=== PATIENT | female | born 1985 | race Caucasian/White ===

== ENCOUNTER 2017-03-18 06:00 | Inpatient (IN) ==
[2017-03-18] MEDS ORDERED: Famotidine 20 MG/2 ML VIAL IVP PRN (06:12)
[2017-03-18] MEDS ORDERED: miSOPROStol 25 MCG TABLET PO PRN (06:12)
[2017-03-18] MEDS ORDERED: *HR* Nalbuphine 20 MG/ML AMPUL IVP PRN (06:12)
[2017-03-18] MEDS ORDERED: Naloxone 0.4 MG/ML INJ IVP PRN (06:12)
[2017-03-18] MEDS ORDERED: Ondansetron 4 MG/2 ML VIAL IVP PRN (06:12)
[2017-03-18] MEDS ORDERED: D5% in 0.45% NACL 1,000 ML IVC SCH (06:30)
--- NOTE | 2017-03-18 06:37 | OB/GYN History & Physical ---
Date of Encounter: 03/18/17 Time of Encounter: 06:45 Assessment and Plan (1) Encounter for elective induction of labor Current visit: Yes Status: Acute Plan: - admit to L&D - NST reactive - obtain CBC and drug screen - expectant management. Begin induction with * - anticipate (2) 39 weeks gestation of Current visit: Yes Status: Acute Routine care with Dr. Emery, close observation for SGA, 39% growth at 28 weeks (3) NST (non-stress test) reactive Current visit: Yes Status: Acute (4) Hx of mixed drug abuse Current visit: Yes Status: Acute hx of heroin (2012) and marijuana use (5) Hepatitis C Current visit: Yes Status: Chronic Patient followed outside [facility] office Qualifiers: Viral hepatitis chronicity: chronic Hepatic coma status: without hepatic coma Qualified Code(s): B18.2 - Chronic viral hepatitis C (6) Depression with anxiety Current visit: Yes Status: Chronic Patient followed by psychiatry and is currently on Effexor, stable History of Present Illness Chief complaint: induction of labor HPI: Ms. Lemus is a 31 year old female at 39+3 weeks presented to labor and delivery for induction of labor. Patient's is complicated by hepatitis C. Reports active movement. Patient denies vaginal bleeding, contractions, leakage of fluids. Denies N/V, changes in vision, ABBOTT. Patient follows up with Dr. Emery. PNL: Blood type O+. GBS neg, RI, HBsAG neg, HIV neg. RPR neg. Hep C pos Past Med Surg Social Fam HX - Past Medical History Attestation: Yes The following information was validated with the patient. Source: patient, old records reviewed Medical history: asthma, hepatitis (hep C) Psychiatric history: anxiety, depression, other - Past Surgical History Surgical History: other (Facial reconstruction) - Social History Smoking Status: Former smoker Smokeless Tobacco Status: No Alcohol use: none Drug use: none - Family History Father Hx Family Cardiac Disorders: Yes (HTN) Obstetrical History - Pregnancies : 1 Para: 0 Term: 0 : 0 Ab's: 0 Livin - History/Complications History/Complications: none Medications and Allergies Effexor 37.5 mg PO DAILY 12/10/14 [History] Folic Acid [Folic Acid] 03/18/17 [History] Vit #108/Iron/FA [ One Tablet] 03/18/17 [History] 3 Allergy/AdvReac Type Severity Reaction Status Date / Time Amoxicillin Allergy Hives Verified 03/18/17 06:58 Penicillins Allergy Hives Verified 03/18/17 06:58 vancomycin Allergy Hives Verified 03/18/17 06:58 Review of System OB All systems PM: reviewed and no additional remarkable complaints except as stated - Constitutional Constitutional ROS IM: weight gain Exam - Vital Signs Vital signs: Afebrile, vital signs stable. heart tones 130s baseline, CAT 1 - Constitutional Constitutional: well developed, well nourished - HEENT HEENT: EOMI - Neck Neck exam: full ROM - Lungs Respiratory exam: CTAB - Cardiovascular Cardiovascular exam: RRR - Breasts Breast: bilateral: normal (Gravid) - Abdomen Abdomen: Present: bowel sounds normal, gravid, non tender - Extremities Extremities exam: normal inspection, warm - Vulva Vulva: bilateral: normal - Vagina Vagina: Present: normal moisture - Cervix Dilation: 5 Effacement: 80 Station: -1 - Anus/Rectum Anus/Rectum: Present: normal perianal skin Results Result Diagrams: 03/18/17 06:30 All other labs normal. - VTE Reasons for not Prescribing Prophylaxis: Treatment not Indicated - Low risk for VTE - Attending Attestation I examined this patient and my medical decision-making was reviewed with the Resident Physician. I agree with the documented findings, disposition and treatment plan as described except to the extent set forth below.
[2017-03-18 06:50] LABS: Amphetamine Screen,Urine Negative ng/mL (Cutoff=1000); Barbiturate Screen,Urine Negative ng/mL (Cutoff=200); Benzodiazepines Screen,Urine Negative ng/mL (Cutoff=200); Cannabinoid Screen,Urine Negative ng/mL (Cutoff = 50); Cocaine Screen,Urine Negative ng/mL (Cutoff= 300); Opiate Screen,Urine Negative ng/mL (Cutoff=300); Phencyclidine Screen,Urine Negative ng/mL (Cutoff=25)
[2017-03-18 07:06] LABS: Basophils % 0.4 %; Eosinophils % 0.2 %; Hematocrit 36.7 % (35.3-44.9); Hemoglobin 12.9 g/dL (11.5-15.4); Immature Granulocytes % 0.5 % (0-4); Lymphocytes # 2.5 K/mcL (0.6-4.6); Lymphocytes % 22.6 %; Mean Corpuscular HGB Conc 35.1 g/dL (31.6-35.5); Mean Corpuscular Hemoglobin 30.7 pg (28.0-33.3); Mean Corpuscular Volume 87.4 fL (83.0-100.0); Mean Platelet Volume 9.3 fL (9.4-12.4); Monocytes # 0.6 K/mcL (0.0-1.3); Monocytes % 5.3 %; Neutrophils # 7.8 K/mcL (1.6-8.9); Platelet Count 317 K/mcL (140-400); Red Cell Distribution Width 12.6 % (11.5-14.5)
[2017-03-18] MEDS ORDERED: Venlafaxine XR (24 HR) 37.5 MG CAP.ER.24H PO SCH (09:00)
[2017-03-18] MEDS: Ringers Solution, Lactated 1,000 ML IVC SCH ×2 (11:06→12:28)
[2017-03-18] MEDS ORDERED: *HR* FentaNYL (PF) 100 MCG/2 ML VIAL EP ONE (11:28)
[2017-03-18] MEDS ORDERED: Bupivacaine-MPF 0.25% 10 ML VIAL EP ONE (11:28)
[2017-03-18] MEDS ORDERED: Epidural Premix (fent/bupiv) 110 ML EP SCH (11:30)
[2017-03-18] MEDS ORDERED: Bupivacaine-MPF 0.25% 10 ML VIAL ONE (11:30)
[2017-03-18] MEDS ORDERED: *HR* FentaNYL (PF) 100 MCG/2 ML VIAL ONE (11:31)
[2017-03-18] MEDS ORDERED: Epidural Premix (fent/bupiv) 110 ML EP ONE (11:31)
--- NOTE | 2017-03-18 12:04 | Anesthesia Evaluation PreOp ---
Date of Encounter: 03/18/17 Time of Encounter: 11:20 - Past History Planned Operation: labor epidural Cardiac History: Denies any Significant Hx Pulmonary History: Smoker (1ppd for 15 years. only smokes rarely during .), Asthma (well controlled. No recent attacks. 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 Soft tissue facial surgery. No problems with GA, no FHAP.) : Yes Alcohol Use: none Drug use: none Medications and Allergies Effexor 37.5 mg PO DAILY 12/10/14 [History] Folic Acid [Folic Acid] 03/18/17 [History] Vit #108/Iron/FA [ One Tablet] 03/18/17 [History] 3 Allergy/AdvReac Type Severity Reaction Status Date / Time Amoxicillin Allergy Hives Verified 03/18/17 06:58 Penicillins Allergy Hives Verified 03/18/17 06:58 vancomycin Allergy Hives Verified 03/18/17 06:58 - Meds/Allergy Pre-op Review Medications Reviewed: Yes Allergies Reviewed: Yes Beta Blockers on Current Med List: No Anesthesia Results - Labs 03/18/17 06:30 Anesthesia Exam 130/83, 75, 20. FHTs 120s. Height: 5'7" Weight: 69kg NPO (# of Hours): 6 Pain Scale: 10 Pain Scale Used: Numeric (1 - 10) - HEENT Pupil (Motor): Pupils equal, EOMI Mallampati: II Teeth: Normal Oral Opening: Greater than 3 - EXT JS DEVELOPER LOC: Oriented EXT JS DEVELOPER Motor: Normal RUE, Normal LUE, Normal RLE, Normal LLE, Normal Face EXT JS DEVELOPER Sensory: Normal: RUE, LUE, RLE, LLE, Face - Cardiac Rhythm: Regular - Pulmonary Breath Sounds: bilateral Clear Respiratory Effort: Symmetrical Anesthesia Assess/Plan ASA Score: 3 Modified Equality Scale for Level of Consciousness: Cooperative, oriented, and tranquil Anesthetic Plan: Regional Monitoring Plan: Standard Monitors
--- NOTE | 2017-03-18 12:10 | Anesthesia Procedures ---
Date of Encounter: 03/18/17 Time of Encounter: 11:34 Procedures: Anesthesia - Epidural/Spinal Patient ID/Chart reviewed: Yes Patient examined: Yes OB Eval: Gestational age: 39 OB Eval: : 1 OB Eval: Hx Para: 0 OB Eval: Dilated at (cm): 4 OB Eval: Contractions: Non-stressed pattern Supplemental Oxygen: None/Room Air Site Prep: Aseptic Technique, Sterile prep and drape, Povidone-Iodine 1% Patient position: upright Local Anesthetic: Lidocaine 1% Amount of Local Anesthetic used: 3 Touhy Needle Gauge: 18 Catheter Depth at Skin (cm): 5 Test Dose (1.5% Lido + Epi): Volume given (mls): 16 Test Dose Result: Negative Loading Dose: 0.25% Marcaine (mls): 8 Loading Dose: Fentanyl (mcg): 100 Loading Dose Administered: Thru Catheter Infusion Med: 0.125% Bupivacaine w/ 2 mcg/ml Fentanyl Infusion Rate (mls/hr): [address]: Tegaderm, Tape Interspace Used: L3-L4 Loss of Resistance (ORQUIDEA): Yes Blood: No CSF: No Paresthesia: No Vitals + FHT's: 3 Vital Signs Time 1134 1147 1150 1155 1200 BP 129/92 125/82 118/70 112/68 102/57 Pulse 76 80 84 109 77 FHTs 120 120 120 120 120
[2017-03-18] MEDS ORDERED: Oxytocin 20 units/ LR 1000 mL 20 UNIT/1,000 ML BAG IVC ONE ×2 (15:38→21:28)
--- NOTE | 2017-03-18 16:38 | OB/GYN Procedure Note ---
Delivery - Delivery Date: 03/18/17 Provider: Libby Angel Intrapartum events: none Delivery induction: misoprostol Delivery monitor: external FHT, external uterine Anesthesia: epidural Estimated Blood Loss: 100 - Infant (s) A Infant Delivery Date: 03/18/17 Infant Delivery Time: 16:19 Presentation: vertex Position: ADILENE Route of delivery: Gender: Female Viability: Viable Pounds: 7 Ounces: 10 Weight Gram: 3470 kg at 1 minute: 8 at 5 mins: 9 Shoulder Dystocia: not encountered Specimens collected: cord blood Placenta: spontaneous, uterine exploration (No retained products of conception) Cord: 3 umbilical vessels - Repair Episiotomy: none Laceration Description: Vaginal, Labial (right) - Complications Delivery complications: none Delivery comments: of vigorous viable female in the ADILENE position. No nuchal. No meconium. Shoulders delivered easily. No shoulder dystosia. placed on mom 's belly. Apgars 8/9 at 1 and 5 minutes. Cord double clamped and cut after pulsations ceased. Placenta delivered spontaneously appears grossly intact. 3 vessel cord present. Upon peritoneal inspection, right labial, hemostatsis stable and left to heal by second intention and vaginal laceration closed with 3 -0 monocryl and hemostatic after closure. Fundus firm and at u/2. EBL 100ml. Infant delivery attended by Dr. Angel and Dr. Jennifer Hu. Infant and mother stable in recovery. Pericare instructions given to patient. - Disposition Mom disposition: stable in LDR [place] disposition: stable in LDR - Comments Comments: I examined this patient and my medical decision-making was reviewed with the Resident Physician. I agree with the documented findings, disposition and treatment plan as described except to the extent set forth below. Cord blood was obtained. Uterus was explored and there were no retained products of conception.
[2017-03-18] MEDS ORDERED: Measles/Mumps/Rubella Vacc 0.5 ML VIAL SQ PRN (21:28)
[2017-03-18] MEDS ORDERED: Oxytocin 20 units/ LR 1000 mL 20 UNIT/1,000 ML BAG IVC SCH (21:28)
[2017-03-18] MEDS ORDERED: Benzocaine/Menthol 56 GM AEROSOL SPRAY TP PRN (21:28)
[2017-03-18] MEDS ORDERED: Sennosides 8.6 MG TABLET PO PRN (21:28)
[2017-03-18] MEDS ORDERED: Ibuprofen 600 MG TABLET PO PRN (21:28)
[2017-03-18] MEDS ORDERED: Acetaminophen 325 MG TABLET PO PRN (21:28)
[2017-03-19 03:39] LABS: Basophils % 0.2 %; Eosinophils % 0.1 %; Hematocrit 34.5 % (35.3-44.9); Hemoglobin 11.8 g/dL (11.5-15.4); Immature Granulocytes % 0.4 % (0-4); Lymphocytes # 2.4 K/mcL (0.6-4.6); Lymphocytes % 15.3 %; Mean Corpuscular HGB Conc 34.2 g/dL (31.6-35.5); Mean Corpuscular Hemoglobin 30.6 pg (28.0-33.3); Mean Corpuscular Volume 89.4 fL (83.0-100.0); Mean Platelet Volume 9.4 fL (9.4-12.4); Monocytes # 0.7 K/mcL (0.0-1.3); Monocytes % 4.5 %; Neutrophils # 12.7 K/mcL (1.6-8.9); Platelet Count 297 K/mcL (140-400); Red Blood Count 3.86 M/mcL (3.82-4.97); Red Cell Distribution Width 12.4 % (11.5-14.5); Segmented Neutrophils % 79.5 %
[2017-03-19] MEDS ORDERED: Prenatal Vit/FA 1 EACH TABLET PO SCH (09:00)
[2017-03-19] MEDS ORDERED: Venlafaxine XR (24 HR) 37.5 MG CAP.ER.24H PO SCH (09:00)
--- NOTE | 2017-03-19 09:06 | Discharge Summary ---
Date of Encounter: 03/19/17 Time of Encounter: 09:03 - Discharge Diagnosis (1) Encounter for elective induction of labor Priority: Secondary Status: Acute (2) 39 weeks gestation of Priority: Primary Status: Acute (3) NST (non-stress test) reactive Priority: Secondary Status: Acute (4) Hx of mixed drug abuse Priority: Secondary Status: Acute (5) Hepatitis C Priority: Secondary Status: Chronic Qualifiers: Viral hepatitis chronicity: chronic Hepatic coma status: without hepatic coma Qualified Code(s): B18.2 - Chronic viral hepatitis C (6) Depression with anxiety Priority: Secondary Status: Chronic - Discharge Medications Prescriptions: Acetaminophen [Tylenol] 650 mg PO Q6HR PRN #40 tablet PRN Reason: Mild Pain Ibuprofen [Motrin] 600 mg PO Q6HR PRN #40 tablet PRN Reason: Cramping Docusate [Colace] 100 mg PO BID #10 capsule Home Medications: Effexor 37.5 mg PO DAILY 12/10/14 [History] Folic Acid 03/18/17 [History] Vit #108/Iron/FA [ One Tablet] 03/18/17 [History] Acetaminophen [Tylenol] 650 mg PO Q6HR PRN #40 tablet 03/19/17 [Rx] Benzocaine/Menthol [place] [Dermoplast [place]] 1 appl TP QID PRN aerosol 03/19/17 [Rx] Docusate [Colace] 100 mg PO BID #10 capsule 03/19/17 [Rx] Ibuprofen [Motrin] 600 mg PO Q6HR PRN #40 tablet 03/19/17 [Rx] Allergies/Adverse Reactions: 3 Allergy/AdvReac Type Severity Reaction Status Date / Time Amoxicillin Allergy Hives Verified 03/18/17 06:58 Penicillins Allergy Hives Verified 03/18/17 06:58 vancomycin Allergy Hives Verified 03/18/17 06:58 Data Procedures and tests throughout hospitalization: Laboratory Tests 03/18/17 03/18/17 03/19/17 06:30 06:30 03:14 WBC 10.9 15.9 H RBC 4.20 3.86 Hgb 12.9 11.8 Hct 36.7 34.5 L MCV 87.4 89.4 MCH 30.7 30.6 MCHC 35.1 34.2 RDW 12.6 12.4 Plt Count 317 297 MPV 9.3 L 9.4 Immature Gran % 0.5 0.4 Seg Neutrophils % 71.0 79.5 Lymphocytes % 22.6 15.3 Monocytes % 5.3 4.5 Eosinophils % 0.2 0.1 Basophils % 0.4 0.2 Neutrophils # 7.8 12.7 H Lymphocytes # 2.5 2.4 Monocytes # 0.6 0.7 Eosinophils # 0.0 0.0 Basophils # 0.0 0.0 Urine Opiates Screen Negative Ur Barbiturates Screen Negative Ur Phencyclidine Scrn Negative Ur Amphetamines Screen Negative U Benzodiazepines Scrn Negative Urine Cocaine Screen Negative U Marijuana (THC) Screen Negative Labs on day of discharge: Labs from last 24 hours 03/19/17 03:14 WBC 15.9 H RBC 3.86 Hgb 11.8 Hct 34.5 L MCV 89.4 MCH 30.6 MCHC 34.2 RDW 12.4 Plt Count 297 MPV 9.4 Immature Gran % 0.4 Seg Neutrophils % 79.5 Lymphocytes % 15.3 Monocytes % 4.5 Eosinophils % 0.1 Basophils % 0.2 Neutrophils # 12.7 H Lymphocytes # 2.4 Monocytes # 0.7 Eosinophils # 0.0 Basophils # 0.0 Date of admission: 03/18/17 06:01 Primary care physician: George Díaz DO Consults: 03/18/17 21:28 Consult to Envelope Sealer Operator [CONS] Routine Comment: Vaginal delivery, consult needed Discharging clinician: Leatha Lewis Anticipated date of discharge: 03/19/17 - Patient Status Disposition: Home, Self-Care Condition: Good Functional capacity at discharge: independent ambulation Overall status at discharge: patient is progressing back to baseline - Discharge Instructions Follow Up With: George Díaz DO [Primary Care Provider] - - Diet and Activity Activity: increase activity as tolerated Diet: advance to your usual diet Hospital Course Reason for admission: active labor Delivery: Episiotomy: none Laceration: vaginal side wall Other procedures: none complications: none Discharge diagnosis: IUP at term delivered [place] baby: female Hospital course: - Delivery Date: 03/18/17 Provider: Libby Angel Intrapartum events: none Delivery induction: misoprostol Delivery monitor: external FHT, external uterine Anesthesia: epidural Estimated Blood Loss: 100 - (s) A Delivery Date: 03/18/17 Delivery Time: 16:19 Presentation: vertex Position: ADILENE Route of delivery: Gender: Female Viability: Viable Pounds: 7 Ounces: 10 Weight Gram: 3470 kg at 1 minute: 8 at 5 mins: 9 Shoulder Dystocia: not encountered Specimens collected: cord blood Placenta: spontaneous, uterine exploration (No retained products of conception) Cord: 3 umbilical vessels - Repair Episiotomy: none Laceration Description: Vaginal, Labial (right) - Complications Delivery complications: none Delivery comments: of vigorous viable female infant in the ADILENE position. No nuchal. No meconium. Shoulders delivered easily. No shoulder dystosia. placed on mom 's belly. Apgars 8/9 at 1 and 5 minutes. Cord double clamped and cut after pulsations ceased. Placenta delivered spontaneously appears grossly intact. 3 vessel cord present. Upon peritoneal inspection, right labial, hemostatsis stable and left to heal by second intention and vaginal laceration closed with 3 -0 monocryl and hemostatic after closure. Fundus firm and at u/2. EBL 100ml. delivery attended by Dr. Angel and Dr. Jennifer Hu. Infant and mother stable in recovery. Pericare instructions given to patient. - Disposition Mom disposition: stable in Patient had no complications after delivery. Patient has been able to void well and ambulating after epidural. Appetite is good. Patient is breast- feeding and nursing was able to assist before discharge. Patient has stable and ready for discharge. We will follow up with edema CRAFT ARTIST in 4 weeks. Time Attestation: Total time spent providing and/or coordinating discharge services: Exam - Constitutional Vitals: Temp Pulse Resp BP Pulse Ox 98.1 F 84 12 100/62 98 03/19/17 05:04 03/19/17 05:04 03/19/17 05:04 03/19/17 05:04 03/19/17 05:04 General appearance IM: pleasant, no acute distress - Respiratory Respiratory exam: Present: CTAB - Cardiovascular Cardiovascular exam IM: Present: RRR - GI/Abdominal GI/Abdominal exam IM: normal bowel sounds - Uterine Tone: Firm Uterus Position: 2 Fingers Below Umbilicus - Extremities Exam Extremities exam IM: Present: normal inspection - Neurological Exam Neurological exam: alert, no focal deficits - Psychiatric Additional comments: Reports good mood.
[2017-03-19 09:09] VITALS: BP 111/73
[2017-03-21 12:00] LABS: HCV Quant Interpretation NOT DETECTED (Not Detected)
== END 2017-03-19 11:18 | disposition home or self-care (01) | DRG 560 ==
LOC: 1NENULAB 06:01 → 1NENUOBS 18:44
PROVIDERS: ADMIT Obstetrics & Gynecology; ATTEND Obstetrics & Gynecology

== ENCOUNTER 2020-06-20 11:31 | Inpatient (IN) ==
[2020-06-20] MEDS ORDERED: Famotidine 20 MG/2 ML VIAL IVP PRN (11:46)
[2020-06-20] MEDS ORDERED: miSOPROStoL 25 MCG TABLET PO PRN (11:46)
[2020-06-20] MEDS ORDERED: Lidocaine 1% 20 ML MDV INFILT PRN (11:46)
[2020-06-20] MEDS ORDERED: *HR* Nalbuphine 10 MG/ML AMPUL IV PRN (11:46)
[2020-06-20] MEDS ORDERED: Azithromycin 500 MG in 0.9 % Sodium Chloride 250 ML IVPB ONE (11:46)
[2020-06-20] MEDS ORDERED: Metoclopramide 10 MG/2 ML VIAL IVP PRN (11:46)
[2020-06-20] MEDS ORDERED: Ondansetron 4 MG/2 ML VIAL IVP PRN ×2 (11:46→17:58)
[2020-06-20] MEDS ORDERED: Naloxone 0.4 MG/ML INJ IVP PRN ×2 (11:46→17:58)
[2020-06-20] MEDS ORDERED: Penicillin G Potassium 5,000,000 UNIT in 0.9 % Sodium Chloride Mini Bag 100 ML IVPB ONE (11:57)
[2020-06-20] MEDS ORDERED: Ringers Solution, Lactated 1,000 ML IVC SCH (12:00)
[2020-06-20 12:58] LABS: Basophils % 0.4 %; Eosinophils # 0.1 K/mcL (0.0-0.6); Eosinophils % 1.2 %; Hematocrit 35.5 % (35.3-44.9); Hemoglobin 11.5 g/dL (11.5-15.4); Immature Granulocytes % 0.6 % (0-4); Lymphocytes # 1.5 K/mcL (0.6-4.6); Lymphocytes % 18.5 %; Mean Corpuscular HGB Conc 32.4 g/dL (31.6-35.5); Mean Corpuscular Hemoglobin 28.2 pg (28.0-33.3); Mean Platelet Volume 9.6 fL (9.4-12.4); Monocytes # 0.4 K/mcL (0.0-1.3); Monocytes % 5.3 %; Platelet Count 342 K/mcL (140-400); Red Blood Count 4.08 M/mcL (3.82-4.97); White Blood Count 8.1 K/mcL (4.3-11.1)
[2020-06-20 13:09] LABS: Amphetamine Screen,Urine Negative ng/mL (Cutoff=1000); Barbiturate Screen,Urine Negative ng/mL (Cutoff=200); Benzodiazepines Screen,Urine Negative ng/mL (Cutoff=200); Cannabinoid Screen,Urine Negative ng/mL (Cutoff = 50); Cocaine Screen,Urine Negative ng/mL (Cutoff= 300); Opiate Screen,Urine Negative ng/mL (Cutoff=300); Phencyclidine Screen,Urine Negative ng/mL (Cutoff=25)
[2020-06-20 13:24] LABS: Adenovirus Not Detected (Not Detect); Bordetella Pertussis Not Detected (Not Detect); Chlamydophila pneumoniae Not Detected (Not Detect); Coronavirus 229E Not Detected (Not Detect); Coronavirus HKU1 Not Detected (Not Detect); Coronavirus NL63 Not Detected (Not Detect); Coronavirus OC43 Not Detected (Not Detect); Human Metapneumovirus Not Detected (Not Detect); Human Rhinovirus/Enterovirus DETECTED (Not Detect); Influenza A Subtype 2009 H1 Not Detected (Not Detect); Influenza B Not Detected (Not Detect); Mycoplasma pneumoniae Not Detected (Not Detect); Parainfluenza Virus 1 Not Detected (Not Detect); Parainfluenza Virus 2 Not Detected (Not Detect); Parainfluenza Virus 3 Not Detected (Not Detect); Parainfluenza Virus 4 Not Detected (Not Detect); Respiratory Syncytial Virus Not Detected (Not Detect); SARS-CoV-2 Not Detected (Not Detect)
[2020-06-20] MEDS ORDERED: Penicillin G Potassium 2,500,000 UNIT/105 ML MLS IVPB SCH (16:00)
[2020-06-20 16:24] LABS: Albumin 3.7 g/dL (3.5-5.7); Albumin/Globulin Ratio 1.5 (1.1-2.2); Bilirubin,Direct 0.1 mg/dL (0.0-0.2); Bilirubin,Indirect 0.6 mg/dL (0.0-1.0); Bilirubin,Total 0.7 mg/dL (0.3-1.0); Globulin 2.5 g/dL (2.4-3.5); Total Protein 6.2 g/dL (6.4-8.9)
[2020-06-20] MEDS ORDERED: Oxytocin 20 units/ LR 1000 mL 20 UNIT/1,000 ML BAG IVC SCH ×2 (17:15→22:50)
[2020-06-20] MEDS ORDERED: EPHEDrine 50 MG/ML VIAL IVP PRN (17:58)
[2020-06-20] MEDS ORDERED: Ropivacaine/PF 0.2% 20 ML VIAL EP ONE (17:58)
[2020-06-20] MEDS ORDERED: Epidural Premix (fent/bupiv) 110 ML EP SCH (18:00)
[2020-06-20] MEDS ORDERED: Ropivacaine/PF 0.2% 20 ML VIAL ONE (18:06)
[2020-06-20] MEDS ORDERED: Benzonatate 100 MG CAPSULE PO PRN (20:25)
[2020-06-20] MEDS ORDERED: Oxytocin 20 units/ LR 1000 mL 20 UNIT/1,000 ML BAG IVC ONE (22:50)
[2020-06-20] MEDS ORDERED: Rho Immune Globulin 1,500 UNIT SYRINGE IM PRN (22:50)
[2020-06-20] MEDS ORDERED: Measles/Mumps/Rubella Vacc 0.5 ML VIAL SQ PRN (22:50)
[2020-06-20] MEDS ORDERED: Acetaminophen 325 MG TABLET PO PRN (22:50)
[2020-06-20] MEDS ORDERED: Ibuprofen 600 MG TABLET PO PRN (22:50)
[2020-06-21 04:55] LABS: Basophils # 0.1 K/mcL (0.0-0.2); Basophils % 0.3 %; Eosinophils # 0.1 K/mcL (0.0-0.6); Eosinophils % 0.8 %; Hematocrit 31.3 % (35.3-44.9); Hemoglobin 10.4 g/dL (11.5-15.4); Immature Granulocytes % 0.5 % (0-4); Lymphocytes # 1.9 K/mcL (0.6-4.6); Lymphocytes % 12.3 %; Mean Corpuscular HGB Conc 33.2 g/dL (31.6-35.5); Mean Corpuscular Hemoglobin 28.3 pg (28.0-33.3); Mean Corpuscular Volume 85.1 fL (83.0-100.0); Mean Platelet Volume 9.3 fL (9.4-12.4); Monocytes % 4.8 %; Neutrophils # 12.6 K/mcL (1.6-8.9); Platelet Count 289 K/mcL (140-400); Red Blood Count 3.68 M/mcL (3.82-4.97); Red Cell Distribution Width 12.9 % (11.5-14.5); Segmented Neutrophils % 81.3 %
[2020-06-21 04:56] LABS: Monocytes # 0.7 K/mcL (0.0-1.3); White Blood Count 15.5 K/mcL (4.3-11.1)
[2020-06-21] MEDS ORDERED: Prenatal Vit/FA 1 EACH TABLET PO SCH (09:00)
[2020-06-21] MEDS ORDERED: Venlafaxine XR (24 HR) 37.5 MG CAP.ER.24H PO SCH (09:00)
[2020-06-21] MEDS ORDERED: Bupivacaine-MPF 0.25% 10 ML VIAL ONE (13:59)
[2020-06-21] MEDS ORDERED: ROPIVACAINE/PF/NS 0.25% 1 EACH SYRINGE INTRAART ONE (15:08)
[2020-06-21] MEDS ORDERED: Sugammadex Sodium 200 MG/2 ML VIAL IV ONE (15:44)
[2020-06-21] MEDS ORDERED: Lidocaine HCL 4 ML Topical Solution (Laryng-O-Jet Kit Sterile Pak) TP ONE (15:44)
[2020-06-21] MEDS ORDERED: *HR* Midazolam HCl 2 MG/2 ML VIAL ONE (15:44)
[2020-06-21] MEDS ORDERED: *HR* Propofol 200 MG/20 ML VIAL IVP ONE (15:44)
[2020-06-21] MEDS ORDERED: *HR* Succinylcholine 200 MG/10 ML VIAL IVP ONE (15:44)
[2020-06-21] MEDS ORDERED: *HR* Rocuronium Bromide 50 MG/5 ML VIAL ONE ×2 (15:44→15:48)
[2020-06-21] MEDS ORDERED: *HR* FentaNYL (PF) 100 MCG/2 ML VIAL ONE (15:44)
[2020-06-21] MEDS ORDERED: Ondansetron 4 MG/2 ML VIAL ONE (15:44)
[2020-06-21] MEDS ORDERED: Ketorolac 30 MG/ML VIAL ONE (15:44)
[2020-06-21] MEDS ORDERED: Lidocaine -MPF 2% 2 ML VIAL ONE (15:44)
[2020-06-21 20:09] VITALS: BP 98/64
== END 2020-06-21 22:30 | disposition home or self-care (01) | DRG 768 ==
LOC: 1NENULAB 11:31 → 1NENUOBS 06-21 00:09
PROVIDERS: ADMIT Obstetrics & Gynecology; ATTEND Obstetrics & Gynecology